=== PATIENT | male | born 1995 | race Caucasian/White ===

== ENCOUNTER 2019-06-16 13:34 | Emergency (ER) | payer SELFPAY ==
[~2019-06-16] VITALS: Ht 188 cm; Wt 112.0 kg
--- NOTE | 2019-06-16 13:55 | NUR ---
CALLED AT 1355, LOOKED OUTSIDE, NO ANSWER
--- NOTE | 2019-06-16 14:02 | NUR ---
CALLED PT AT 1402, NO ANSWER
--- NOTE | 2019-06-16 14:11 | NUR ---
CALLED AGAIN 1410, NO ANSWER
[2019-06-16 14:28] VITALS: BP 121/68
--- NOTE | 2019-06-16 17:19 | NUR ---
no adverse reaction noted
--- NOTE | 2019-06-16 17:21 | NUR ---
no answer in er lobby
== END 2019-06-16 16:04 | disposition left against medical advice (07) ==
LOC: MED 13:34
DX: M54.2 Cervicalgia (principal); Z53.21 Procedure and treatment not carried out due to patient leaving prior to being seen by health care provider